=== PATIENT | female | born 1975 | race Caucasian/White ===

== ENCOUNTER → 2017-02-09 | Outpatient (CLI) | payer MEDICAID ==
[~2017-02-09] MED LIST: ALBUTEROL-200 PUFFS/ INH; LORTAB 5/500 501 TAB PO; LORTAB 500 MG-71 TAB PO; MEDROL 4MG. DOSE4 MG PO; ROBAXIN 500 MG500 MG PO; SULFAMETHOXAZOL1 TA6 PO
--- NOTE | 2017-02-09 15:07 | RADIOLOGY REPORT PS360 ---
[id number] VIEWS HISTORY: RT SHOULDER PAIN ORDERING PHYSICIAN: SAMARA MICHAEL MD PATIENT AGE: 42 years COMPARISON: None FINDINGS: No fracture or dislocation. No lytic or blastic change. There is normal mineralization. The joint spaces are well-preserved. No significant degenerative/arthritic changes. No erosive changes evident. IMPRESSION: Negative, no acute finding
== END ==
LOC: RAD 14:00
DX: M25.511 Pain in right shoulder (principal)

== ENCOUNTER → 2017-02-20 | Outpatient (CLI) | payer MEDICAID ==
--- NOTE | 2017-02-21 11:54 | RADIOLOGY REPORT PS360 ---
MRI-UP EXT ANY JNT W/O-RT MRI right shoulder Ordering Physician: SAMARA MICHAEL MD Patient Age: 42 years: Female HISTORY: PAIN IN RT SHOULDER pain 3 years. No known injury. Popping TECHNIQUE: Multiplanar multisequence imaging 1.5 T MR COMPARISON :Plain films right shoulder 08/18/2014 and 02/09/2017 FINDINGS Supraspinatus tendon. Slightly thickened supraspinatus tendon increased intrasubstance signal. This reflects tendinopathy at critical zone and possible associated mainly intrasubstance tear. Also fluid signal at tendon insertion reflect a small developing rim rent tear. On sagittal images there is a focus of increased signal at the superior posterior aspect of supraspinatus insertion. Sagittal image 4. There is also a small area of increased signal on sagittal image 8 which could reflect a small pinhole full-thickness tear.,, just inferior to the acromion tip. Only slight downward orientation of distal acromion on coronal views. Slight arching of the subacromial space on sagittal image. Scant minimal fluid at subdeltoid subacromial bursa noted which can likely secondary to a tiny full-thickness tear rather than bursitis.. Supraspinatus muscle is well-maintained Infraspinatus muscle and tendon appear intact. Subscapularis tendon intact. Small joint effusion with fluid extending anteriorly into the subcoracoid recess and anterior interval region. Biceps tendon I believe is intact although difficult to visualize just above the biceps groove AC joint intact. Scant if any hypertrophy superiorly. A generous anterior labrum intact. The posterior labrum I believe is intact although more difficult to confirm such inferiorly with questionable thickened capsule overlying inferior posterior aspect posterior labrum. IMPRESSION: 1. Supraspinatus tendinopathy with minor supraspinatus tear (s.) Likely yielding scant fluid subdeltoid subacromial bursa: -Mild thickening critical zone,.. Several areas abnormal signal including Abnormal Interstitial signal critical zone which extends to the posterior superior margin,. Also increased signal at foot Plate insertion (developing rim rent), & small vertical focus just beneath tip of acromion.. -No tendon retraction, but suspect pinhole full-thickness tear at one of these areas, which yields the minimal fluid at subdeltoid subacromial bursa 2. Small joint effusion with fluid extending into the subcoracoid recess. 3. Other minor observations in text. .
== END ==
LOC: RAD 02-14 11:00
DX: M25.511 Pain in right shoulder (principal)